=== PATIENT | male | born 1955 | race Caucasian/White ===

== ENCOUNTER 2022-04-21 23:19 | Outpatient (CLI) | payer MEDICARE, OTHER | END 2022-04-21 23:20 | disposition EMS.NT | LOC: EMS 23:19 | DX: R10.11 Right upper quadrant pain (principal) ==

== ENCOUNTER 2022-04-22 01:21 | Outpatient (CLI) | payer MEDICARE, OTHER | END 2022-04-22 01:22 | disposition critical access hospital (66) | LOC: EMS 01:21 | DX: R41.0 Disorientation, unspecified (principal); M54.50 Low back pain, unspecified; C61 Malignant neoplasm of prostate | CPT/HCPCS: A0425; A0429 ==

== ENCOUNTER 2022-04-22 01:46 | Emergency (ER) | payer MEDICARE, OTHER ==
--- NOTE | 2022-04-22 01:49 | ED Physician Documentation ---
History of Present Illness - Stated complaint Stated Complaint: PAIN, CONFUSION, CA/HOSPICE - History obtained from History obtained from: Family (phone conversation with patient's ) - History of Present Illness Timing: Unknown - Additonal information Additional information: On my HPI, patient is sleeping, only very briefly arousable with painful stimulus , rapidly falls back asleep. He is thus unable to contribute to HPI/ROS. HPI is obtained from BLS, conversation with patient's I have over the phone, conversation with patient's hospice nurse, and records faxed from [facility]. 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 Records from [facility] indicate he was admitted via ED 04/16 where he presented for unmanageable pain associated with his metastases. he was transfused for anemia during that stay. The records indicate he was discharged 04/20 to home and under care of hospice. There is a POLST form at bedside indicating DNR, comfort measures only, and prefers no artificial nutrition. This is dated 04/19/22 There is a hospice form at bedside indicating he is a hospice patient. This is dated 04/20/22. Patient's told BLS and the hospice nurse that patient was becoming confused, at times combative since coming home from [facility]. Hospice nurse indicates that family did not contact the hospice service initially and thus by the time she got to the patient's house, he was already in the ambulance and it was leaving to come to this ED. BLS says they were at patient's house earlier tonight for c/o symptoms not being controlled with his hospice-ordered medications but that he then declined transfer, only to call again and reportedly wanting to come to the ED. Per hospice nurse, patient's signed a revocation of the hospice care. It is unclear to me if patient was a clear, cognizant participant in this decision. There are no previous [facility] records in [place]. Review of Systems Unable to obtain: AMS PD PAST MEDICAL HISTORY - Past Medical History Past Medical History: Yes Cardiovascular: Hypertension, High cholesterol GI: Hepatitis (C) Other Past Medical History: prostate cancer with metastis to bone - Allergies Allergies/Adverse Reactions: Allergies Allergy/AdvReac Type Severity Reaction Status Date / Time No Known Drug Allergies Allergy Verified 04/22/22 03:30 - Living Situation Living Situation: reports: With spouse/s.o. Living Arrangement: reports: At home PD ED PE NORMAL - Vitals Vital signs reviewed: Yes - General General: No acute distress, Well developed/nourished, Other (sleeping, wakes briefly with painful stimulus but immediately falls back asleep and thus effectively nonverbal on my exam) - HEENT HEENT: Other (dry mucous membranes) - Cardiac Cardiac: RRR - Respiratory Respiratory: No respiratory distress, Clear bilaterally - Abdomen Abdomen: Soft, Non tender - Derm Derm: Normal color, Warm and dry - Extremities Extremities: No edema - Neuro Eye Opening: To Pain Motor: Localizes to Pain Verbal: None GCS Score: 8 PD ED PE EXPANDED - Cardiac Cardiac: Murmur Present (2/6 CANDI LSB) Results - Vitals Vitals: Vital Signs - 24 hr 04/22/22 04/22/22 04/22/22 02:02 03:15 05:00 Temperature 36.6 C Heart Rate 107 H 84 83 Respiratory 20 11 L 13 Rate Blood Pressure 166/123 H 137/92 H 165/120 H O2 Saturation 97 100 100 04/22/22 04/22/22 07:00 09:00 Temperature Heart Rate 79 85 Respiratory 19 18 Rate Blood Pressure 109/81 H 121/78 O2 Saturation 100 100 Oxygen O2 Source Room air - Labs Labs: Laboratory Tests 04/22/22 04/22/22 08:07 08:07 WBC 2.1 L RBC 3.23 L Hgb 9.6 L Hct 30.3 L MCV 93.8 MCH 29.7 MCHC 31.7 L RDW 17.7 H Plt Count 129 L MPV 9.0 Neut # (Auto) 1.3 L Lymph # (Auto) 0.4 L [place] # (Auto) 0.4 Eos # (Auto) 0.0 Baso # (Auto) 0.0 Absolute Nucleated RBC 0.03 Nucleated RBC % 1.4 Manual Slide Review Indicated RBC Morph Micro Appear 3+ ANISOCYTOSIS Sodium 130 L Potassium 3.9 Chloride 96 L Carbon Dioxide 25 Anion Gap 9.0 BUN 16 Creatinine 0.8 Estimated GFR (MDRD) 96 Glucose 103 H Calcium 8.9 Total Bilirubin 0.7 AST 10 ALT < 10 L Alkaline Phosphatase 231 H Total Protein 6.3 L Albumin 3.1 L Globulin 3.2 Albumin/Globulin Ratio 1.0 Lipase 23 PD MEDICAL DECISION MAKING - ED course Complexity details: reviewed old records (records from [facility] ), re-evaluated patient, considered differential, d/w family ED course: I contacted patient's (Anna, ). This conversation did not result in any clarification of what the goals are of this ED visit. She says she does not feel she can manage his care at home, with the primary concern being symptom control. Tara, patient's hospice nurse, came to ED and I discussed the case with her. She evaluated patient but patient remains to drowsy/obtunded to ascertain his goals of care. Unfortunately, Tara indicates to me that patient's signed a revocation of hospice and at this time he is not considered a hospice patient for their service. She says they can consider readmission to hospice service but this would likely require at least one or two days . Plan is to have manager social evaluated patient his morning when this service is available to further attempt to ascertain the goal(s) of care for this patient. Care of patient turned over to oncoming ED physician at end of my shift.
[2022-04-22 08:11] LABS: BASOPHILS % (AUTO) 0.5 %; HCT - HEMATOCRIT 30.3 % (42.0-52.0); HGB - HEMOGLOBIN 9.6 g/dL (14.0-18.0); LYMPHOCYTES # (AUTO) 0.4 10^3/uL (1.5-3.5); LYMPHOCYTES % (AUTO) 19.2 %; MEAN CORPUSCULAR HEMOGLOBIN 29.7 pg (27.0-31.0); MEAN CORPUSCULAR HGB CONC 31.7 g/dL (32.0-36.0); MEAN CORPUSCULAR VOLUME 93.8 fL (80.0-94.0); MONOCYTES # (AUTO) 0.4 10^3/uL (0.0-1.0); MONOCYTES % (AUTO) 17.8 %; NEUTROPHILS # (AUTO) 1.3 10^3/uL (1.5-6.6); NEUTROPHILS % (AUTO) 60.5 %; NRBC ABSOLUTE COUNT (AUTO) 0.03 x10^3/uL; NUCLEATED RED BLOOD CELLS AUTO 1.4 /100WBC; PLT - PLATELET COUNT 129 10^3/uL (130-450); RED BLOOD COUNT 3.23 10^6/uL (4.70-6.10); RED CELL DISTRIBUTION WIDTH 17.7 % (12.0-15.0); WHITE BLOOD COUNT 2.1 x10^3/uL (4.8-10.8)
[2022-04-22 08:14] LABS: SLIDE REVIEW? Indicated
[2022-04-22 08:25] LABS: ALBUMIN 3.1 g/dL (3.2-5.5); ALKALINE PHOSPHATASE 231 IU/L (42-121); ALT ALANINE AMINOTRANSFERASE < 10 IU/L (10-60); AST ASPARTATE AMINOTRANSFERASE 10 IU/L (10-42); BILIRUBIN,TOTAL 0.7 mg/dL (0.2-1.0); BUN - BLOOD UREA NITROGEN 16 mg/dL (6-20); CALCIUM 8.9 mg/dL (8.5-10.3); CARBON DIOXIDE - CO2 25 mmol/L (21-32); CHLORIDE 96 mmol/L (101-111); CREATININE 0.8 mg/dL (0.6-1.2); GFR - MDRD 96 (>89); GLUCOSE 103 mg/dL (70-100); LIPASE 23 U/L (22-51); POTASSIUM 3.9 mmol/L (3.5-5.0); SODIUM 130 mmol/L (135-145); TOTAL PROTEIN 6.3 g/dL (6.7-8.2)
--- NOTE | 2022-04-22 08:47 | ED Physician Documentation ---
ED Addendum - Addendum Addendum: 04/22/22 07:24 Pt seen on morning rounds with Dr. Odonnell. Pt is still very drowsy, awakes to light touch and will answer briefly but drifts off to sleep. Unclear what his goals of care are at this time as hospice was revoked by (?so pt could come to ER) but previous notes indicate that he wants to focus on comfort measures. Plan to obtain screening labs this morning and have SW see pt and speak to . 0846: Labs reviewed. Na 130 (Previous on 04/19/22 was 124). Hemoglobin on 04/19 was 8.4. 04/22/22 11:43 Pt reports having Increased pain. Nurse aware to reconcile home medications to keep him on same regiment. I discussed with the patient regarding his goals of care and he states "I went to get out of here soon as possible". When I asked him to clarify this he states he wants to get out of this world and would like to pass without pain. He does not want interventions or treatments. 04/22/22 11:48 D/W Dr. Santi Swift ([facility], hospice). Patient is okay to stay on their services and they are able to tear up with a revocation papers as it does not seem that the understood what she was signing. Patient is on hydromorphone 2 mg every 2 hours.She is discussed with the and daughters who are also okay with patient going home. Departure - Departure Disposition: 01 Home, Self Care Clinical Impression: Hospice care patient, Prostate cancer metastatic to bone Condition: Stable Follow-Up: SANTI SWIFT [Physician No Access] - Comments: Please continue to work with your hospice nurse and hospice company to help manage your symptoms. You are able to return to the emergency department at anytime with any concerns.
[2022-04-22 08:51] LABS: RBC MORPHOLOGY (MULTIPLE) 3+ ANISOCYTOSIS (NORMAL)
[2022-04-22 11:29] VITALS: BP 129/88
[2022-04-22] MEDS: HYDROmorphone 2 MG TABLET PO STA ×2 (11:58→12:52)
[2022-04-22] MEDS: HYDROmorphone 2 MG TABLET PO PRN (13:49)
== END 2022-04-22 13:50 | disposition home or self-care (01) ==
LOC: ED 01:46
DX: C61 Malignant neoplasm of prostate (principal); C79.51 Secondary malignant neoplasm of bone; G89.3 Neoplasm related pain (acute) (chronic); R41.0 Disorientation, unspecified; I10 Essential (primary) hypertension; Z66 Do not resuscitate
CPT/HCPCS: 36415; 80053; 83690; 85025; 99283; 99284; A9270

== ENCOUNTER 2022-04-22 13:10 | Outpatient (CLI) | payer MEDICARE, OTHER | END 2022-04-22 13:11 | disposition hospice, home (50) | LOC: EMS 13:10 | PROVIDERS: ATTEND Emergency Medicine | DX: G89.3 Neoplasm related pain (acute) (chronic) (principal); C79.51 Secondary malignant neoplasm of bone; R53.1 Weakness | CPT/HCPCS: A0425; A0428 ==